=== PATIENT | male | born 1985 | race Caucasian/White ===

== ENCOUNTER 2024-06-07 20:33 | Emergency (ER) | payer SELFPAY ==
--- NOTE | 2024-06-07 20:43 | XRR_ITS ---
PROCEDURE INFORMATION: Exam: XR Left Knee Exam date and time: 06/07/2024 8:49 PM Age: 38 years old Clinical indication: Injury or trauma; Blunt trauma; Left; Patient HX: PT arrived via pov with the C/O a fall. PT states that he is hearing noises that shouldn't come from a knee . ; Additional info: Fall, pop and crackle, pain TECHNIQUE: Imaging protocol: Radiologic exam of the left knee. Views: 3 views. COMPARISON: No relevant prior studies available. FINDINGS: Bones/joints: Normal. Soft tissues: Normal. XR/XR knee LT 3V* [id number] IMPRESSION: No acute findings.
[2024-06-07 20:44] VITALS: BP 135/99; PULSE 90; RESP 18; TEMP 36.7; O2SAT 98; BMI 52.2
[2024-06-07 20:49] VITALS: PULSE 83; O2SAT 98
--- NOTE | 2024-06-07 20:54 | ED_ITS ---
HPI - Extremity Problem General: Chief complaint: Extremity Injury, Lower Stated complaint: fell in swink hole and left knee injured Time Seen by Provider: 06/07/24 20:40 History of Present Illness: Patient presents to the ER complaining of left knee pain after he stepped in a hole and fell. Patient said the pain is worse on the lateral side. Patient said he had chronic knee problems but never had pain like this or heard sounds like the side of his knee before. Patient denies wanting anything for pain medicine at this time. Related Data Previous Rx's Medication Instructions Recorded hydrocodone 5 mg-acetaminophen 325 1 tab PO Q6H PRN pain #14 tabs 06/07/24 mg tablet Allergies Allergy/AdvReac Type Severity Reaction Status Date / Time No Known Allergies Allergy Verified 06/07/24 20:46 Review of Systems General: Reports: 10 or more systems reviewed and unremarkable except in HPI and below Physical Exam Const: COMMON NORMALS: no acute distress, average body habitus, patient oriented x3, no limitations, healthy appearing, alert and well nourished HENMT: COMMON NORMALS: normocephalic, atraumatic, hearing grossly normal bilaterally, external ears normal, Normal external nose present and moist oral mucous membranes HEAD & SCALP: normocephalic and atraumatic NOSE: Normal external nose present EXTERNAL EAR: Yes external ears normal Neck/C-Spine: COMMON NORMALS: full ROM, no lymphadenopathy, supple, no meningeal signs, no JVD and Thyroid normal THYROID: Thyroid normal Chest: COMMONS NORMALS: normal inspection of the chest and normal palpation of entire chest wall Resp: COMMON NORMALS: normal respiratory effort, No retractions, No use of accessory muscles and clear to auscultation bilaterally AUSCULTATION: clear to auscultation bilaterally Cardio: COMMON NORMALS: no JVD, regular rate, regular rhythm, S1 normal heart sound present, S2 normal heart sound present, No gallops present (Cardio), No clicks present (Cardio), No murmurs present (Cardio) and No rub (Cardio) RATE: regular rate RHYTHM: regular rhythm HEART SOUNDS: S1 normal heart sound present and S2 normal heart sound present GI: COMMON NORMALS: Normal to inspection, nondistended, normoactive bowel sounds present, Soft to palpation, non-tender, No hepatosplenomegaly present and no masses PALPATION: Yes Soft to palpation and Yes No hepatosplenomegaly present Extremity: NARRATIVE EXTREMITY EXAM: Left knee joint swollen tender to palpate worse on the lateral side. Limited range of motion secondary to pain but is weightbearing secondary to pain Neuro: COMMON NORMALS: patient oriented x3 SENSORIUM/ORIENTATION: Yes alert MENINGEAL SIGNS: Yes no meningeal signs Course Vital Signs: Vital signs: Vital Signs Temperature 98.0 F 06/07/24 20:44 Pulse Rate 83 06/07/24 20:49 Respiratory Rate 18 06/07/24 20:44 Blood Pressure 135/99 06/07/24 20:44 Pulse Oximetry 98 06/07/24 20:49 Oxygen Delivery Me thod Room Air 06/07/24 20:49 MDM - Extremity (Nontraumatic) Medical Decision Making Trays were preliminary read by myself is negative for acute fracture, patient be placed in a knee immobilizer given crutches and a small prescription for hydrocodone to take as needed for pain control. Patient is to follow-up with his PCP within next 7 days for further evaluation and treatment. Medical Records I reviewed the patient's medical records. Lab Data I reviewed the patient's lab results. All radiology interpretation(s) finalized by discharge Discharge Plan Discharge Patient Disposition: Home Clinical Impression: Knee sprain, Fall Condition: Stable Prescriptions: New hydrocodone-acetaminophen 5-325 mg tablet 1 tab PO Q6H PRN (Reason: pain) Qty: 14 0RF Discharge Orders: Discharge ED (Routine); Ordered 06/07/24 Ordered By: Billy Thorne Patient Instructions: Knee Sprain (DC), Crutch Instructions (ED), Knee Immobilizer (ED), Opioid Safety, Pain Management Activity Restrictions/Additional Instructions: Your knee with preliminary read as no acute fracture, this does not mean you have not torn a ligament or meniscus. Please take the pain medicine prescribed to you as needed please use the immobilizer and crutches until released by primary care. Please follow-up with primary care within next 7 days if your pain does not consistently get better you may need referred to an orthopedic surgeon for further evaluation and treatment. Coding Level of Care Code ED Veterinary Laboratory Technician for [facility]
[2024-06-07 22:09] VITALS: RESP 20; O2SAT 98
[2024-06-07] MEDS: morphine 4 mg/mL SDV 1 mL IM (22:09)
[2024-06-07 22:19] VITALS: BP 115/87; PULSE 84; O2SAT 84
== END 2024-06-07 22:20 | disposition home or self-care (01) ==
PROVIDERS: Emergency Provider Emergency Medicine
DX: S83.92XA Sprain of unspecified site of left knee, initial encounter (principal); W19.XXXA Unspecified fall, initial encounter
CPT/HCPCS: 29530; 73562; 96372; 99284; E0114; J2270